=== PATIENT | male | born 1975 | race Caucasian/White ===

== ENCOUNTER 2021-03-28 08:48 | Inpatient (IN) | payer OTHER, SELFPAY ==
[2021-03-28] MEDS ORDERED: HYDROcodone/Acetaminophen 10/325 mg Tablet ONE (09:11)
[2021-03-28] MEDS ORDERED: CEFAZOLIN 2 GM in Premix Bag 1 BAG IVPB SCH (10:15)
[2021-03-28] MEDS ORDERED: Ondansetron PF 4 MG/2 ML Vial ONE (10:23)
[2021-03-28] MEDS ORDERED: Morphine 4 MG/ML VIAL ONE (10:23)
[2021-03-28 10:36] LABS: #Eosinphils 0.2 thou/uL (0.0-0.7); #Lymphocytes 1.2 thou/uL (1.20-3.40); #Neutrophils 9.4 thou/uL (1.40-6.50); %Basophils 0.3 % (0.0-1.0); %Lymphocytes 10.2 % (21.0-51.0); %Neutrophils 79.4 % (42.0-75.0); Hemoglobin 13.6 g/dL (14.0-18.0); Mean Corpuscular HGB CONC 32.3 g/dL (32.0-36.0); Mean Corpuscular Hemoglobin 31.2 pg (27.0-31.0); Mean Corpuscular Volume 96.4 fL (78.0-98.0); Mean Platelet Volume 7.5 fL (7.4-10.4); Platelet Count 287 thou/uL (130-400); RBC Distribution Width 12.2 % (11.5-14.5); Red Blood Cell (RBC) Count 4.36 mill/uL (4.70-6.10); White Blood Cell (WBC) Count 11.9 thou/uL (4.8-10.8)
[2021-03-28 10:46] LABS: PTT 28.9 sec (22.9-36.1); Prothrombin Time 13.5 sec (12.0-14.7)
[2021-03-28 10:56] LABS: ALT (SGPT) 27 U/L (8-55); AST (SGOT) 24 U/L (5-34); Alkaline Phosphatase 70 U/L (40-110); Anion Gap 15 mmol/L (10-20); BUN (Urea Nitrogen) 6 mg/dL (8.9-20.6); Bilirubin, Total 0.3 mg/dL (0.2-1.2); Calc. Creatinine Clearance 0 mL/min (70-130); Calcium 8.7 mg/dL (7.8-10.44); Carbon Dioxide 21 mmol/L (22-29); Chloride 104 mmol/L (98-107); Globulin 3.2 g/dL (2.4-3.5); Glucose 103 mg/dL (70-105); Potassium 4.1 mmol/L (3.5-5.1); Protein, Total 7.2 g/dL (6.0-8.3); Sodium 136 mmol/L (136-145)
[2021-03-28] MEDS ORDERED: Dextrose 50% Abboject 50 ML SYRINGE SLOW IVP PRN (11:08)
[2021-03-28] MEDS ORDERED: Promethazine HCl 25 MG/ML VIAL IM PRN (11:08)
[2021-03-28] MEDS ORDERED: hydrALAZINE 20 MG/ML VIAL SLOW IVP PRN (11:08)
[2021-03-28] MEDS ORDERED: Dextrose 5% in Water 1,000 ML IV PRN (11:08)
[2021-03-28] MEDS ORDERED: Ondansetron PF 4 MG/2 ML Vial IVP PRN (11:08)
[2021-03-28] MEDS ORDERED: TETANUS AND DIPHTHERIA TOX/PF 0.5 ML DISP.SYRIN IM ONE (11:08)
[2021-03-28] MEDS ORDERED: Cyclobenzaprine 10 MG TAB PO PRN (11:12)
[2021-03-28] MEDS ORDERED: Ketorolac Tromethamine 30 MG/ML VIAL ONE (11:32)
[2021-03-28 13:06] LABS: SARS-CoV-2 NAA Rapid Test Not Detected (NotDetected)
[2021-03-28] MEDS: Ketorolac Tromethamine 30 MG/ML VIAL IVP SCH ×2 (14:30→19:18)
[2021-03-28] MEDS: Acetaminophen 500 MG TAB PO SCH ×2 (14:33→19:19)
[2021-03-28] MEDS: traMADol HCl 50 MG TAB PO SCH ×2 (14:35→19:19)
[2021-03-28] MEDS: Sodium Chloride 0.9% 1,000 ML IV SCH ×2 (14:36→23:39)
[2021-03-28 15:38] VITALS: BMI 22.9
[2021-03-28] MEDS: Famotidine 20 MG TAB PO SCH (21:29)
[2021-03-28] MEDS: Senokot S 8.6-50 MG TAB PO SCH (21:29)
[2021-03-28] MEDS: Morphine 2 MG/ML VIAL SLOW IVP PRN (21:29)
[2021-03-29] MEDS: Acetaminophen 500 MG TAB PO SCH ×4 (02:05→19:50)
[2021-03-29] MEDS: traMADol HCl 50 MG TAB PO SCH ×4 (02:05→19:51)
[2021-03-29] MEDS: Ketorolac Tromethamine 30 MG/ML VIAL IVP SCH ×3 (02:06→14:44)
[2021-03-29 05:24] LABS: #Eosinphils 0.7 thou/uL (0.0-0.7); #Monocytes 0.6 thou/uL (0.11-0.59); #Neutrophils 3.9 thou/uL (1.40-6.50); %Basophils 0.5 % (0.0-1.0); %Eosinophils 10.2 % (0.0-10.0); %Lymphocytes 27.3 % (21.0-51.0); %Monocytes 8.4 % (0.0-10.0); %Neutrophils 53.5 % (42.0-75.0); Hemoglobin 12.6 g/dL (14.0-18.0); Mean Corpuscular HGB CONC 33.5 g/dL (32.0-36.0); Mean Corpuscular Hemoglobin 32.9 pg (27.0-31.0); Mean Corpuscular Volume 98.2 fL (78.0-98.0); Mean Platelet Volume 7.8 fL (7.4-10.4); Platelet Count 208 thou/uL (130-400); RBC Distribution Width 12.2 % (11.5-14.5); Red Blood Cell (RBC) Count 3.83 mill/uL (4.70-6.10); White Blood Cell (WBC) Count 7.3 thou/uL (4.8-10.8)
[2021-03-29 05:47] LABS: Anion Gap 9 mmol/L (10-20); BUN (Urea Nitrogen) 8 mg/dL (8.9-20.6); Calc. Creatinine Clearance 96 mL/min (70-130); Calcium 8.2 mg/dL (7.8-10.44); Carbon Dioxide 27 mmol/L (22-29); Chloride 106 mmol/L (98-107); Glucose 102 mg/dL (70-105); Magnesium 2.2 mg/dL (1.6-2.6); Potassium 4.2 mmol/L (3.5-5.1); Sodium 138 mmol/L (136-145)
[2021-03-29 05:51] LABS: Phosphorus 2.8 mg/dL (2.3-4.7)
[2021-03-29] MEDS: Sodium Chloride 0.9% 1,000 ML IV SCH ×2 (07:01→16:45)
[2021-03-29] MEDS ORDERED: Midazolam HCl 2 mg/2 ml Vial ONE (07:27)
[2021-03-29] MEDS ORDERED: Fentanyl 250 MCG/5 ML VIAL ONE (07:27)
[2021-03-29] MEDS ORDERED: Lidocaine 2% Jelly 5 ML TUBE ONE (07:27)
[2021-03-29] MEDS ORDERED: Fentanyl 100 MCG/2 ML VIAL ONE (07:36)
[2021-03-29] MEDS ORDERED: Dexamethasone 20 MG/5 ML VIAL ONE (08:05)
[2021-03-29] MEDS ORDERED: PROPOFOL 200 MG/20 ML VIAL ONE (08:05)
[2021-03-29] MEDS ORDERED: Lidocaine 1% PF 5 ML VIAL ONE (08:05)
[2021-03-29] MEDS ORDERED: Ondansetron PF 4 MG/2 ML Vial ONE (08:05)
[2021-03-29] MEDS ORDERED: EPINEPHrine 1 MG/ML AMP ONE (08:31)
[2021-03-29] MEDS ORDERED: Bupivacaine PF 0.5% 30 ML VIAL ONE (08:31)
[2021-03-29] MEDS ORDERED: Ondansetron HCl/PF 4 MG/2 ML Vial IVP PRN (08:40)
[2021-03-29] MEDS ORDERED: Ketorolac Tromethamine 30 MG/ML VIAL IVP PRN (08:40)
[2021-03-29] MEDS ORDERED: Promethazine HCl 25 MG/ML VIAL IM PRN (08:40)
[2021-03-29] MEDS ORDERED: HYDROmorphone 2 MG/ML VIAL SLOW IVP PRN (08:40)
[2021-03-29] MEDS ORDERED: Promethazine HCl 25 MG/ML VIAL IVPB PRN (08:40)
[2021-03-29] MEDS ORDERED: Meperidine HCl/PF 25 MG/ML VIAL SLOW IVP PRN (08:40)
[2021-03-29] MEDS: Senokot S 8.6-50 MG TAB PO SCH ×2 (12:03→19:50)
[2021-03-29] MEDS: Polyethylene Glycol 3350 17 GM Packet PO SCH (12:03)
[2021-03-29] MEDS: Famotidine 20 MG TAB PO SCH ×2 (12:03→19:51)
[2021-03-29] MEDS: Morphine 2 MG/ML VIAL SLOW IVP PRN ×4 (12:17→22:02)
[2021-03-29] MEDS: CEFAZOLIN 2 GM in Premix Bag 1 BAG IVPB SCH (15:32)
[2021-03-30] MEDS: Sodium Chloride 0.9% 1,000 ML IV SCH ×3 (01:32→13:30)
[2021-03-30] MEDS: CEFAZOLIN 2 GM in Premix Bag 1 BAG IVPB SCH ×2 (01:32→09:21)
[2021-03-30] MEDS: Acetaminophen 500 MG TAB PO SCH ×4 (01:35→19:07)
[2021-03-30] MEDS: traMADol HCl 50 MG TAB PO SCH ×4 (01:36→19:05)
[2021-03-30] MEDS: Morphine 2 MG/ML VIAL SLOW IVP PRN ×4 (03:22→22:07)
[2021-03-30 06:25] LABS: #Lymphocytes 1.1 thou/uL (1.20-3.40); #Monocytes 0.8 thou/uL (0.11-0.59); #Neutrophils 10.1 thou/uL (1.40-6.50); %Eosinophils 0.2 % (0.0-10.0); %Lymphocytes 9.2 % (21.0-51.0); %Neutrophils 83.6 % (42.0-75.0); Hemoglobin 11.8 g/dL (14.0-18.0); Mean Corpuscular HGB CONC 33.3 g/dL (32.0-36.0); Mean Corpuscular Volume 99.1 fL (78.0-98.0); Mean Platelet Volume 8.1 fL (7.4-10.4); Platelet Count 204 thou/uL (130-400); RBC Distribution Width 12.1 % (11.5-14.5); Red Blood Cell (RBC) Count 3.58 mill/uL (4.70-6.10)
[2021-03-30] MEDS: Famotidine 20 MG TAB PO SCH ×2 (09:20→20:48)
[2021-03-30] MEDS: Senokot S 8.6-50 MG TAB PO SCH ×2 (09:20→20:48)
[2021-03-30] MEDS: Polyethylene Glycol 3350 17 GM Packet PO SCH (09:21)
[2021-03-30] MEDS: traMADol HCl 50 MG TAB PO PRN ×2 (13:32→19:06)
[2021-03-31] MEDS: traMADol HCl 50 MG TAB PO SCH ×3 (01:31→15:32)
[2021-03-31] MEDS: Acetaminophen 500 MG TAB PO SCH ×3 (01:32→15:18)
[2021-03-31] MEDS: Sodium Chloride 0.9% 1,000 ML IV SCH ×2 (01:34→08:41)
[2021-03-31] MEDS: Morphine 2 MG/ML VIAL SLOW IVP PRN ×3 (04:40→12:06)
[2021-03-31 05:44] LABS: #Basophils 0.1 thou/uL (0.0-0.2); #Eosinphils 0.6 thou/uL (0.0-0.7); #Lymphocytes 2.4 thou/uL (1.20-3.40); #Monocytes 0.7 thou/uL (0.11-0.59); #Neutrophils 6.2 thou/uL (1.40-6.50); %Basophils 0.8 % (0.0-1.0); %Eosinophils 5.9 % (0.0-10.0); %Lymphocytes 24.2 % (21.0-51.0); %Monocytes 6.7 % (0.0-10.0); %Neutrophils 62.4 % (42.0-75.0); Hemoglobin 11.8 g/dL (14.0-18.0); Mean Corpuscular HGB CONC 32.6 g/dL (32.0-36.0); Mean Corpuscular Hemoglobin 32.4 pg (27.0-31.0); Mean Corpuscular Volume 99.4 fL (78.0-98.0); Mean Platelet Volume 7.9 fL (7.4-10.4); Platelet Count 220 thou/uL (130-400); RBC Distribution Width 12.2 % (11.5-14.5); Red Blood Cell (RBC) Count 3.63 mill/uL (4.70-6.10)
[2021-03-31 07:56] VITALS: TEMP 98.4
[2021-03-31] MEDS: Famotidine 20 MG TAB PO SCH (08:40)
[2021-03-31] MEDS: Senokot S 8.6-50 MG TAB PO SCH (08:40)
[2021-03-31] MEDS: Polyethylene Glycol 3350 17 GM Packet PO SCH (08:42)
[2021-03-31] MEDS: traMADol HCl 50 MG TAB PO PRN (11:21)
[2021-03-31] MEDS ORDERED: traMADol HCl 50 MG TAB PO SCH (17:00)
[2021-03-31 17:34] VITALS: BP 138/87
== END 2021-03-31 17:15 | disposition home or self-care (01) | DRG 494 ==
LOC: ERS 08:48 → ERHOLD 11:10 → SURG B 13:06
PROVIDERS: ADMIT Specialist; ATTEND Specialist
PROC: 0QSG04Z Reposition Right Tibia with Internal Fixation Device, Open Approach (ICD-10-PCS; principal; 2021-03-29)
DX: S82.141A Displaced bicondylar fracture of right tibia, initial encounter for closed fracture (principal); Z20.822 Contact with and (suspected) exposure to COVID-19; J45.909 Unspecified asthma, uncomplicated; F17.220 Nicotine dependence, chewing tobacco, uncomplicated; S93.401A Sprain of unspecified ligament of right ankle, initial encounter; Z98.890 Other specified postprocedural states; V28.0XXA Motorcycle driver injured in noncollision transport accident in nontraffic accident, initial encounter; Y92.410 Unspecified street and highway as the place of occurrence of the external cause
CPT/HCPCS: 36415; 76000; 80048; 80053; 83735; 84100; 85025; 85610; 85730; 96374; 96375; C1713; J0171; J0690; J1100; J1885; J2250; J2270; J2405; J2704; J3010; S0020; U0002; U0005